=== PATIENT | female | born 1955 | race Caucasian/White ===

== ENCOUNTER 2016-08-14 10:49 | Day surgery (SDC) | payer OTHER ==
[~2016-08-14] VITALS: Ht 160 cm; Wt 95.0 kg
[~2016-08-14 10:49] MED LIST: 0.9% Sodium Chloride 1,000 ML IV PRN; ALBU2.5V4 NEB; AMIT10TA6 PO; ANAS1TAB7 PO; ASPI-973 PO; BENZ100C8 PO; BUPR150T12 PO; BUSP15TA3 PO; CALC-696 PO; CALC-777 PO; CETI10CA PO; CHOL100043 PO; CICL6.6S18 TP; CYCL10TA9 PO; DENO60DI SQ; EPIN0.3P2 IM; FLUT16SP NOSTRIL; FLUT1DIS5 IH; IPRA0.2S51 INHALATION; IPRA3AMP NEB; LEVO150T5 PO; LOVA40TA PO; METF-496 PO; MONT10TA20 PO; OMEP20CA11 PO; PRAM0.5T3 PO; PRE20 PO; SENN-133 PO; Sodium Chloride LOK Flush 10 mL Syringe IV PRN; TOPI50TA32 PO; TRAZ-118 PO; ZOV800 PO; fentaNYL-PF 50 mCg/mL 2 mL Inj IVPUSH PRN
[2016-08-14 13:00] VITALS: BP 110/70; PULSE 97; RESP 19; O2SAT 89
--- NOTE | 2016-08-14 13:48 | PCM.ENDCOL ---
Colonoscopy Date of Service: Aug 14, 2016 Physician Janes Hussein MD Indication for Procedure Worsening constipation and personal history of colon polyp Post Procedure Dx & Findings: Polyps hemorrhoids diverticuli Procedure Colonoscopy Prep adequate Withdrawal 17 minutes PROCEDURE IN DETAIL: After unremarkable rectal examination Olympus video colonoscope was inserted into the patient's anal canal was advanced to cecum. Landmarks were identified including ileocecal valve and appendiceal orifice. Was withdrawn systematically. In the ascending colon there was a 1 mm polyp which was resected using cold forceps. In the transverse colon there was a 5 mm polyp which was resected completely using cold snare. In the rectosigmoid junction there were two 2-3 mm polyp which was resected completely using cold snare. In the sigmoid colon and up to the descending colon, multiple small to large diverticuli noted. The mucosa of the cecum, ascending, transverse, descending, sigmoid, rectal mucosa lined with whitish, pink, smooth, glistening, normal-appearing mucosa, normal fine branching, underlying vascularity, normal haustra. The patient tolerated procedure and was transported to observation area. In the rectum retroflexion was done which showed hemorrhoids and a canals inspected carefully and the way out and hemorrhoids noted. Impression Polyps 4 status post complete removal Hemorrhoids Diverticuli Recommendation Repeat colonoscopy 3 years Diverticular diet Presedation Assessment Risks and Benefits Informed consent was obtained from the patient after all risks and benefits including but not limited to drug reaction, infection, pain, bleeding, perforation, as well as alternatives were discussed. Patient monitoring Continuous pulse oximetry, cardiac monitoring, blood pressure monitoring, IV access, and oxygen at 2L per nasal cannula. Periprocedural Fentanyl: Fentanyl 125mcg Incrementally Midazolam: Midazolam 5mg Incrementally Complications There were no periprocedural complications identified. Post Procedure Plan Post Procedure Recommendations 1. Restrict activities today. 2. Resume normal activities in the morning. 3. Resume medications. 4. Patient informed of normal post procedure side effects as bloating, drowsiness, blood streaking in the stool. 5. average risk CRCS. If colon polyps come back as: -Hyperplastic- can repeat colonoscopy in 10 years -Tubular adenoma- repeat colonoscopy in 5 years -Tubulovillous/villous adenoma- repeat colonoscopy in 3 years -If any dysplasia- return to clinic as soon as possible 6. Please don't hesitate to call me with any questions. Janes Hussein MD Aug 14, 2016 13:48
[2016-08-14 13:53] VITALS: BP 104/66; PULSE 85; RESP 14; O2SAT 96
[2016-08-14 14:02] VITALS: BP 89/69; PULSE 82; RESP 14; O2SAT 92; O2SAT 96
[2016-08-14 14:10] VITALS: BP 93/70; PULSE 86; RESP 16; O2SAT 92
--- NOTE | 2016-08-16 10:20 | PATH ---
SURGICAL PATHOLOGY Attending Physician:Janes Hussein M.D. CASE STATUS: Signed Out PATIENT NAME: JOSEPH SARAVIA PID: [id number] : 1955 DATE COLLECTED:08/14/2016 00:00 SPECIMEN: 1: Colon, Biopsy 2: Colon, Biopsy 3: Rectum, Biopsy CLINICAL HISTORY: A: ASCENDING POLYP B: TRANSVERSE POLYP C: RECTAL POLYP FINAL DIAGNOSIS: A. Ascending Colon Polyp: Tubular adenoma. B. Transverse Colon Polyp: Tubular adenoma. C. Rectal Polyp: Hyperplastic polyp. ICD10: D12.6 GROSS DESCRIPTION: The specimen is received in three formalin filled containers labeled with the patient's name. 1). The specimen is sublabeled "ascending polyp" and consists of a 0.3 x 0.3 x 0.3 CM portion of tissue which is entirely submitted in cassette 1A. 2). The specimen is sublabeled "transverse polyp" and consists of 2 portions of tissue which aggregate to 0.6 x 0.6 x 0.5 CM. The specimen is entirely submitted in cassette 2A. 3). The specimen is sublabeled "rectal polyp" and consists of a 0.3 x 0.2 x 0.2 CM portion of tissue which is entirely submitted in cassettes 3A. 08/15/2016 [facility] ICD-9 CODES: CPT CODES: 1: 89541 2: 85093 3: 33584 Electronically Signed Out [address] MD [facility] Pathology [facility], [place] [address] Technical component performed at [facility], [address] [place] [address] Ave[address], [place], [address]
[2016-09-22] MEDS ORDERED: ZIT250 PO (14:20)
== END 2016-08-14 23:59 | disposition home or self-care (01) ==
LOC: END 10:49
PROVIDERS: ATTEND Internal Medicine
DX: D12.2 Benign neoplasm of ascending colon (principal); D12.3 Benign neoplasm of transverse colon; K62.1 Rectal polyp; K59.00 Constipation, unspecified; K57.30 Diverticulosis of large intestine without perforation or abscess without bleeding; K64.8 Other hemorrhoids; F17.210 Nicotine dependence, cigarettes, uncomplicated; Z79.899 Other long term (current) drug therapy

== ENCOUNTER 2017-02-03 13:56 | Inpatient (IN) | payer OTHER, MEDICAID ==
[~2017-02-03] VITALS: Ht 157.5 cm; Wt 103.2 kg
[~2017-02-03 13:56] MED LIST changes: -0.9% Sodium Chloride 1,000 ML IV PRN; -CALC-777 PO; -IPRA0.2S51 INHALATION; -Sodium Chloride LOK Flush 10 mL Syringe IV PRN; -TOPI50TA32 PO; +ZIT250 PO; -fentaNYL-PF 50 mCg/mL 2 mL Inj IVPUSH PRN
[2017-02-03 14:01] VITALS: BP 151/76; PULSE 101; RESP 20; O2SAT 92
--- NOTE | 2017-02-03 16:28 | DRSVH ---
PROCEDURE: X-RAY CHEST ONE VIEW, PORTABLE ([id number]) INDICATIONS: cp TECHNIQUE: One view of the chest was acquired. COMPARISON: [facility], CR, XR CHEST 2VW, 07/02/2016, 17:55. FINDINGS: Surgical changes and devices: None. Lungs and pleura: No pleural effusions or pneumothorax. Bibasilar scarring/atelectasis, which appear s grossly unchanged. No new consolidation.. Mediastinum: Mediastinal contours appear normal. Heart size is normal. Bones and chest wall: No suspicious bony lesions. Overlying soft tissues appear unremarkable. IMPRESSION: Bibasilar atelectasis/scarring, unchanged. No new consolidation. Dictated by: Yakov Braun M.D. on 02/03/2017 at 16:26 Approved by: Yakov Braun M.D. on 02/03/2017 at 16:27
--- NOTE | 2017-02-03 16:46 | ED.REPORT ---
HPI-Chest Pain 40 and Over Date of Service Feb 03, 2017 ED Provider: Alba Dunn History of Present Illness: headaches off and on for a while. lungs are the main issue. Seen today at 1 pm at [facility]. having sob, cough is getting worse. has o2 at home does nebulizer daily last neb at noon today. doing them sometimes q 30 minutes apart. Has had grandson for the last 3 weeks, worse for the last 10 days. Nursing Notes Stated Complaint: LUNG, CHEST PAIN Chief Complaint: Chest Pain Allergies: Coded Allergies: Penicillins (Verified Allergy, Severe, HIVES, 05/24/15) codeine (Verified Allergy, Severe, Rash,Itching,, 05/24/15) soap (Verified Allergy, Intermediate, ASTHMA, 08/14/16) Uncoded Allergies: ORAL METRONIDAZOLE (Adverse Reaction, Unknown, "INTOLERANCE", 05/24/15) Scheduled Amitriptyline (Amitriptyline) 10 Mg Tablet 20 MG PO HS Anastrozole (Anastrozole) 1 Mg Tablet 1 MG PO DAILY Aspirin (Aspirin) 81 Mg Tablet 81 MG PO DAILY Azithromycin (Zithromax) 250 Mg Tablet 250 MG PO DIRECTED M, W, F up to [address] Harrison Bupropion ER (Bupropion ER) 150 Mg Tablet.er 1 TABLET PO BID Buspirone (Buspirone) 15 Mg Tablet 15 MG PO BID Cetirizine HCl (Zyrtec) 10 Mg Capsule 10 MG PO QAM Cholecalciferol (Vitamin D3) (Vitamin D) 1,000 Unit Tablet 1,000 UNIT PO DAILY Ciclopirox (Ciclodan) 6.6 Ml Solution 6.6 ML TP HS Denosumab (Prolia) 60 Mg/1 Ml Syringe 60 MG SQ EVERY 6 MONTHS Fluticasone Propionate (Fluticasone Propionate Nasal) 16 Gm [place].susp 2 SPRAYS NOSTRIL QAM Fluticasone/Salmeterol (Advair 500-50 Diskus) 1 Each Disk.w.dev 1 PUFF IH BID Ipratropium/Albuterol Sulfate (Iprat-Albut 0.5-3(2.5) mg/3 mL Inhalant Soln) 3 Ml Ampul.neb 3 ML NEB QIDWA Levothyroxine (Levothyroxine) 150 Mcg Tablet 150 MCG PO DAILY Lovastatin (Lovastatin) 40 Mg Tablet 40 MG PO HS Metformin ER (Metformin ER) 1,000 Mg Tablet 1,000 MG PO BID Montelukast (Singulair) 10 Mg Tablet 10 MG PO HS Omeprazole (Omeprazole) 20 Mg Capsule.dr 20 MG PO DAILY Pramipexole Dihydrochloride (Mirapex) 0.5 Mg Tablet 0.5 MG PO TID Sennosides (Senna) 8.6 Mg Tablet 17.2 MG PO BID Trazodone (Trazodone) 100 Mg Tablet 200 MG PO HS Scheduled PRN Acyclovir (Acyclovir) 800 Mg Tab 1 TABLET PO DIRECTED PRN PRN Herpes Albuterol Neb Soln (Albuterol Neb Soln) 2.5 Mg/3 Ml Vial.neb 2.5 MG NEB Q2H PRN PRN For Shortness of Breath Benzonatate (Benzonatate) 100 Mg Capsule 100 MG PO TID PRN PRN For Cough Cyclobenzaprine (Cyclobenzaprine) 10 Mg Tablet 10 MG PO TID PRN PRN Spasm Epinephrine (Epipen 2-Stef) 0.3 Mg/0.3 Ml Auto.injct 1 DOSE IM PRN For Anaphyllaxis Prednisone (PredniSONE) 20 Mg Tablet 20 MG PO TID PRN PRN For Cough Miscellaneous Medications Calcium Citrate/Vitamin D2 (Kirill-Citrate Plus Vitamin D Tab) 1 Each Tablet 1 EACH PO General Time Seen by MD: 16:44 Chief Complaint Shortness of breath, Other Hx Obtained From: Patient Sudden in Onset?: No Recent Healthcare: Recent doctor visit Past Medical History Past Medical History Notes: Seen 04/05/15 - dx'd by CT with acute diverticulitis, Rx Flagyl + Levo x 10d Past Medical History [place] Reports: Asthma, COPD, Diabetes mellitus Past Surgical History fallopian tube at 14 years old, kidneys tacked up, shoulder and both wrists Reports: Hysterectomy Family History noncontributory Smoking History Current Every Day Smoker Social History Alcohol Use: Denies alcohol use Drug Use: Other Occupation lives with daughter in law and her children and her boyfriend, no work or school 02/03/2017 Ambulatory Status Independent Review of Systems Basic Review of Systems Eyes: Vision NL, No discharge : No dysuria, No frequency Endocrine: No cold intolerance, No heat intolerance, No weight gain, No weight loss Physical Exam Initial Vital Signs Vital Signs (First) Date Time Temp Pulse Resp B/P Pulse Ox O2 Delivery O2 Flow Rate FiO2 02/03/17 14:01 37.2 101 20 151/76 92 Room Air 02/03/17 17:25 1.5 Initial VS: Reviewed, Vital signs normal Head / Eyes: Atraumatic, Normocephalic, PERRL ENT: Mucous membranes moist, Conjunctiva normal, No scleral icterus Neck: Supple, Non-tender, Full range of motion Back: No CVA tenderness Lymphatic: No lymphadenopathy Extremities: Vascular intact, Neuro intact, No swelling, No tenderness Skin: Warm, Dry, No cyanosis Neurologic: Alert, Oriented, Nonfocal Psychiatric: Mood/affect normal, Behavior normal, Normal thought content General/Constitutional: Awake, Alert Distress / Hydration: Positive: Distress moderate Respiratory / Chest: Atraumatic greatly decreased lung sounds. some improved after multiple nebs Cardiovascular: Heart rate NL, Regular rhythm, Heart sounds NL, No gallop, No murmurs, No rubs, Cap refill not delayed Abdomen: Atraumatic, Soft, Non-tender, McBurney's non-tender Interpretation & Diagnostics Lab Results Interpretation Result Diagram: 02/03/17 1655 02/03/17 1655 Test 02/03/17 16:55 02/03/17 17:30 02/03/17 17:50 White Blood Count 8.4th/mm3 (3.8-10.1) Red Blood Count 4.21mil/mm3 (3.90-5.20) Hemoglobin 12.0g/dL (12.0-15.6) Hematocrit 37.8% (35.0-46.0) Mean Corpuscular Volume 89.8fL (81-100) Mean Corpuscular Hemoglobin 28.5pg (27.0-35.0) Mean Corpuscular Hemoglobin Concent 31.7% (32.0-37.0) Red Cell Distribution Width 14.2% (12.3-15.4) Platelet Count 348bil/L (150-400) Neutrophils (%) (Auto) 71.2% (40-74) Lymphocytes (%) (Auto) 18.4% (14-46) Monocytes (%) (Auto) 6.5% (4-12) Eosinophils (%) (Auto) 2.5% (0-5) Basophils (%) (Auto) 0.6% (0-3) Sodium Level 136mEq/L (134-144) Potassium Level 4.4mEq/L (3.5-5.2) Chloride Level 99mEq/L (97-108) Carbon Dioxide Level 23mmol/L (18-29) Blood Urea Nitrogen 14mg/dL (8-27) Creatinine 0.62mg/dL (0.57-1.00) Estimat Glomerular Filtration Rate 141mL/min (>59) Glucose Level 169mg/dL (60-99) Calcium Level 9.2mg/dL (8.5-10.1) Total Bilirubin 0.2mg/dL (0.0-1.2) Aspartate Amino Transf (AST/SGOT) 20U/L (0-50) Alanine Aminotransferase (ALT/SGPT) 27U/L (0-32) Alkaline Phosphatase 99U/L (25-165) Troponin T < 0.010ug/L (0.0-0.011) Pro-B-Type Natriuretic Peptide 12.16pg/mL (0-287) Total Protein 7.4g/dL (6.4-8.4) Albumin 4.3g/dL (3.4-5.0) Hold Tobar Top Tube Received (Received) Lactic Acid Level 1.1mmol/L (0.4-2.0) Urine Color Yellow (YELLOW) Urine Appearance Clear (CLEAR,HAZY) Urine pH 5.0 (5.0-8.0) Urine Specific [place] 1.030 (1.003-1.035) Urine Protein Negativemg/dL (NEG,TRACE) Urine Glucose (UA) Negativemg/dL (NEGATIVE) Urine Ketones Negativemg/dL (NEGATIVE) Urine Occult Blood Negative (NEGATIVE) Urine Nitrite Negative (NEGATIVE) Urine Bilirubin Negative (NEGATIVE) Urine Urobilinogen Normalmg/dL (NORMAL) Urine Leukocyte Esterase Negative (NEGATIVE) Urine RBC 0-2/hpf (0-2) Urine WBC 0-5/hpf (0-5) Urine Epithelial Cells Moderate/hpf (NONE-MOD) Urine Crystals None seen (NONE SEEN) Urine Bacteria Few/hpf (NONE-FEW) Urine Hyaline Casts None/lpf (NONE) Urine Granular Casts None seen (NONE SEEN) Urine Waxy Casts None seen (NONE SEEN) Urine Red Blood Cell Casts None seen (NONE SEEN) Urine White Blood Cell Casts None seen (NONE SEEN) Urine Mucus None seen (None Seen) Urine Trichomonas None seen (NONE SEEN) Urine Yeast None (NONE SEEN) Urinalysis Comment None Urine Culture Reflexed Not indicated Re-Eval/Medical Decision Med Decision/Clinical Course 61 year old female with copd with excerbation. Patient reports ability to breath after multiple nebs and soulmedrol. Road test and she drops to the 80s. Admit. no sign of PE or pneumonia Discharge & Departure Primary Impression: COPD exacerbation Disposition: ADMITTED TO HOSPITAL Referrals: Markos Pascual MD (PCP) EDSupervising Provider for APC: Clayton Denney MD copies to: Markos Pascual MD, Sue ARNP Feb 03, 2017 16:46
[2017-02-03] MEDS ORDERED: Albuterol-Ipratropium 3 mL Inhalation Solution NEB ONE ×2 (17:10→20:10)
[2017-02-03] MEDS ORDERED: MethylprednisoLONE Sodium Succinate 62.5 mg/mL 2 mL Inj IVPUSH ONE (17:10)
[2017-02-03] MEDS ORDERED: Albuterol 2.5 mg/3 mL Inhalation Solution NEB ONE (17:15)
[2017-02-03 17:23] LABS: BASOPHILS % (AUTO) 0.6 % (0-3); EOSINOPHILS % (AUTO) 2.5 % (0-5); MONOCYTES % (AUTO) 6.5 % (4-12); Mean Corpuscular Hemoglobin 28.5 pg (27.0-35.0); Mean Corpuscular Volume 89.8 fL (81-100); NEUTROPHILS % (AUTO) 71.2 % (40-74); Platelet Count 348 bil/L (150-400)
[2017-02-03 17:25] VITALS: PULSE 91; RESP 16; O2SAT 96
[2017-02-03 17:48] LABS: TROPONIN T < 0.010 ug/L (0.0-0.011)
--- NOTE | 2017-02-03 19:19 | DRSVH ---
PROCEDURE: CT ANGIO CHEST PULMONARY EMBOLISM ([id number]) INDICATIONS: sob TECHNIQUE: After the administration of intravenous contrast, 2 mm thick sections acquired from the pulmonary api avani to the posterior costophrenic angles. 3-dimensional maximum intensity projection (MIP) coronal a nd sagittal reformats were then acquired through the thorax. For radiation dose reduction, the follo wing was used: automated exposure control, adjustment of mA and/or kV according to patient size. COMPARISON: None. FINDINGS: Image quality: Excellent. Pulmonary arteries: Pulmonary arteries are normal in size, and demonstrate no intraluminal filling d efects to suggest central pulmonary embolism. Lungs and pleura: Bibasilar scarring and atelectasis. No focal consolidation. No pleural effusions o r pneumothorax. Central and peripheral airways are patent. Mediastinum: Heart size is normal, with trace anterior pericardial effusion. No mediastinal or rodrigo r adenopathy. Thoracic aorta is normal in caliber and enhancement. Esophagus is normal in caliber, without hiatal hernia. Bones and chest wall: No suspicious bony lesions. Ribs and thoracic spine appear intact throughout. Thyroid gland unremarkable. No axillary or supraclavicular adenopathy. Abdomen: Visualized upper abdominal solid organs appear normal in the early arterial phase of enhanc ement. IMPRESSION: No pulmonary embolism. Bibasilar scarring/atelectasis. Dictated by: Yakov Braun M.D. on 02/03/2017 at 19:14 Approved by: Yakov Braun M.D. on 02/03/2017 at 19:18
[2017-02-03 19:34] LABS: APPEARANCE,URINE CLEAR (CLEAR,HAZY); COLOR,URINE YELLOW (YELLOW)
[2017-02-03 19:35] LABS: OCCULT BLOOD,URINE NEGATIVE (NEGATIVE); UROBILINOGEN,URINE NORMAL (NORMAL)
[2017-02-03 20:19] VITALS: PULSE 88; RESP 16; O2SAT 93
[2017-02-03] MEDS ORDERED: Alum-Mag Hydrox-Simeth 30 mL Suspension PO PRN (20:25)
[2017-02-03] MEDS ORDERED: Polyethylene Glycol (PEG) 17 Gm Powder PO PRN (20:25)
[2017-02-03] MEDS ORDERED: Ondansetron 2 mg/mL 2 mL Inj IVPUSH PRN (20:25)
[2017-02-03] MEDS ORDERED: Glucose 40% Oral Gel 15 Gm Tube PO PRN (20:30)
[2017-02-03] MEDS: Albuterol-Ipratropium 3 mL Inhalation Solution NEB SCH (20:30)
[2017-02-03] MEDS ORDERED: Dextrose 10% 250 ML IV PRN (20:35)
--- NOTE | 2017-02-03 20:35 | PCM.HPMED ---
Subjective Date of Service Feb 03, 2017 Primary Provider: Admitting Physician: Primary Care Physician: Markos Pascual MD Attending Physician: Admit Status: From the Emergency Department, Full Admit Chief Complaint: shortness of breathe History of Present Illness: Meagan Mercado is a 60 year old female with COPD and Chronic Respiratory failure on home oxygen, asthma, and Diabetes presenting to [facility] Emergency department with shortness of breath Patient has been having shortness of breathe for a couple of days but worsened today. She has been taking care of her grandson (9 year old visiting from [place] ) who had some runny nose and coughing. Associated symptoms includes head ache and increasing dyspnea and coughing. No improvement with neb treatment at home despite doing it several times a day. She has Asthma since childhood and has a long list of allergies including dogs, she has 3 dogs at her home but takes a allergy shot every week. She also uses CPAP at night She was evaluated at [facility] and then transferred to the Emergency department. Patient tachycardic on arrival (HR 101) Received Solu-Medral and Neb treatment but with little relief. Plan for admission. Review of Systems: Pertinent positives as noted in HPI. All other systems were reviewed and are negative Allergies Coded Allergies: Penicillins (Verified Allergy, Severe, HIVES, 05/24/15) codeine (Verified Allergy, Severe, Rash,Itching,, 05/24/15) soap (Verified Allergy, Intermediate, ASTHMA, 08/14/16) Uncoded Allergies: ORAL METRONIDAZOLE (Adverse Reaction, Unknown, "INTOLERANCE", 05/24/15) Home Medications From [facility], not yet confirmed Meagan Mercado [id number] 1955 12/05/2016 02:00 PM 07/15 acyclovir 800 mg tablet take 1 tablet by oral route 5 times every day for 10 days Advair Diskus 500 mcg-50 mcg/dose for Inhalation 1 inhalation barrie morning and again every evening. Rinse mouth after use. amitriptyline 10 mg tablet TAKE 2 TABS ORALLY AT BEDTIME anastrozole 1 mg tablet take 1 tablet (1MG) by oral route every day azithromycin 250 mg tablet take one tab every other day ie Sunday/ Sunday/ Sunday bupropion HCl SR 150 mg tablet,sustained-release take 1 tablet by oral route 2 times every day buspirone 15 mg tablet take 1 tablet by oral route 2 times every day Calcium 600 + D(3) 600 mg calcium-200 unit capsule Cetirizine Hcl 1 tablet by mouth daily ciclopirox 8 % topical solution apply by topical route every day to the affected area(s) preferably at bedtime or 8 hours before washing Cyclobenzaprine Hcl 1tab 3x daily Elbow Strap Please apply to both elbows at night Fluticasone 50 Mcg/Actuation Disk W 2 sprays each nostril as needed hydrocodone 5 mg-acetaminophen 325 mg tablet take 1 tablet by oral route every 6 hours as needed for pain ipratropium-albuterol 0.5 mg-3 mg(2.5 mg base)/3 mL nebulization soln inhale 3 milliliter by nebulization route 3 times every day ipratropium-albuterol 0.5 mg-3 mg(2.5 mg base)/3 mL nebulization soln inhale 1 milliliter by nebulization route 6 times every day levothyroxine 150 mcg tablet take 1 tablet (150MCG) by oral route every day lorazepam 0.5 mg tablet take 1 Tablet by oral route 3 times every day as needed lovastatin 40 mg tablet take 1 tablet (40MG) by oral route every day with the evening meal meloxicam 7.5 mg tablet take 1 tablet by ORAL route 2 times every day metformin 1,000 mg tablet take 1 tablet (1000MG) by oral route 2 times every day with morning and evening meals methocarbamol 750 mg tablet take 2 tablet by ORAL route every 12 hours omeprazole 20 mg Cap, Delayed Release take 1 capsule (20MG) by ORAL route every day before a meal PRAMIPEXOLE 0.5 MG TABLET TAKE 2 TABLETS ORALLY 1-3 HOURS BEFORE BEDTIME *BOTTLE * prednisone 20 mg tablet take 1 tablet by oral route 3 times every day Prolia 60 mg/mL subcutaneous syringe inject 1 milliliter by subcutaneous route every 6 months in the upper arm, upper thigh or abdomen Singulair 10 mg Tab take 1 tablet by mouth every evening Topamax 25 mg tablet take 2 Tablet by oral route every day evening trazodone 100 mg tablet take 1 tablet (100MG) by ORAL route every day after meals Vitamin D3 1,000 unit chewable tablet PMH 1. Diverticulosis and diverticulitis in the past 2. Chronic obstructive pulmonary disease. She uses home oxygen, continues to smoke. 3. Obstructive sleep apnea with use of home CPAP. 4. Osteoporosis. 5. Type 2 diabetes mellitus, oral agent controlled. 6. Chronic back pain. 7. Obesity and hyperlipidemia. 8. Respiratory allergies/hay fever. 9. Prior history of methamphetamine and alcohol abuse, abstinent since the early . 10. Hypothyroid, on replacement. 11. Worsening constipation, currently followed at [facility] GI clinic . Surgical History Hysterectomy. Family History One sister with breast cancer. Two other siblings with COPD. Two brothers with coronary artery disease. Mother with coronary artery disease. Social History Hx Alcohol Use: No (QUIT 01/22-HX OF ABUSE) Hx Substance Use: Yes (STOPPED 14 YEARS AGO-METH, COCAINE-USES MARIJUANA OCCAS) Hx Tobacco Use: Yes (was a 2 pack/day) Smoking Status: Current Every Day Smoker Living Arrangement: with Family Exam Vital Signs Vital Sign - Last Date Time Temp Pulse Resp B/P Pulse Ox O2 Delivery O2 Flow Rate FiO2 02/03/17 20:19 88 16 93 Nasal Cannula 2 02/03/17 14:01 37.2 151/76 Exam General: Alert, Oriented X3, Cooperative, mild acute Distress due to anxiety from dyspnea. Talking in full sentences Eyes: PERRLA, Scleral Anicteric Mouth: Mouth Normal, Mucous Membranes Moist/[place] Neck: Supple, no Thyromegaly, trachea central. Chest & Lungs: Clear to auscultation & percussion but with some expiratory wheezing noted on both lung benitez Cardiovascular: Normal S1, Normal S2, No Murmurs/Rubs/Gallops, Regular Rate/ Rhythm, No JVD, no peripheral edema) Pulses: Radial (present and equal), Dorsalis Pedi (present and equal) Abdomen: Soft, Non-tender, Non-distended, Normoactive bowel tones. Musculoskeletal: Unremarkable. Normal range of motion, no swollen or erythematous joints Extremities: No edema, no cyanosis, no clubbing. Skin: No rashes. Warm and dry, no erythematous areas Neurological: Grossly neurologically intact, Normal Speech, Sensation Intact Lymphatic: Lymph nodes Cervical and Axillary not palpable. Lab and Diagnostics Labs Laboratory Tests Test 02/03/17 16:55 02/03/17 17:30 02/03/17 17:50 White Blood Count 8.4th/mm3 (3.8-10.1) Red Blood Count 4.21mil/mm3 (3.90-5.20) Hemoglobin 12.0g/dL (12.0-15.6) Hematocrit 37.8% (35.0-46.0) Mean Corpuscular Volume 89.8fL (81-100) Mean Corpuscular Hemoglobin 28.5pg (27.0-35.0) Mean Corpuscular Hemoglobin Concent 31.7% (32.0-37.0) Red Cell Distribution Width 14.2% (12.3-15.4) Platelet Count 348bil/L (150-400) Neutrophils (%) (Auto) 71.2% (40-74) Lymphocytes (%) (Auto) 18.4% (14-46) Monocytes (%) (Auto) 6.5% (4-12) Eosinophils (%) (Auto) 2.5% (0-5) Basophils (%) (Auto) 0.6% (0-3) Sodium Level 136mEq/L (134-144) Potassium Level 4.4mEq/L (3.5-5.2) Chloride Level 99mEq/L (97-108) Carbon Dioxide Level 23mmol/L (18-29) Blood Urea Nitrogen 14mg/dL (8-27) Creatinine 0.62mg/dL (0.57-1.00) Estimat Glomerular Filtration Rate 141mL/min (>59) Glucose Level 169mg/dL (60-99) Calcium Level 9.2mg/dL (8.5-10.1) Total Bilirubin 0.2mg/dL (0.0-1.2) Aspartate Amino Transf (AST/SGOT) 20U/L (0-50) Alanine Aminotransferase (ALT/SGPT) 27U/L (0-32) Alkaline Phosphatase 99U/L (25-165) Troponin T < 0.010ug/L (0.0-0.011) Pro-B-Type Natriuretic Peptide 12.16pg/mL (0-287) Total Protein 7.4g/dL (6.4-8.4) Albumin 4.3g/dL (3.4-5.0) Hold Tobar Top Tube Received (Received) Lactic Acid Level 1.1mmol/L (0.4-2.0) Urine Color Yellow (YELLOW) Urine Appearance Clear (CLEAR,HAZY) Urine pH 5.0 (5.0-8.0) Urine Specific [place] 1.030 (1.003-1.035) Urine Protein Negativemg/dL (NEG,TRACE) Urine Glucose (UA) Negativemg/dL (NEGATIVE) Urine Ketones Negativemg/dL (NEGATIVE) Urine Occult Blood Negative (NEGATIVE) Urine Nitrite Negative (NEGATIVE) Urine Bilirubin Negative (NEGATIVE) Urine Urobilinogen Normalmg/dL (NORMAL) Urine Leukocyte Esterase Negative (NEGATIVE) Urine RBC 0-2/hpf (0-2) Urine WBC 0-5/hpf (0-5) Urine Epithelial Cells Moderate/hpf (NONE-MOD) Urine Crystals None seen (NONE SEEN) Urine Bacteria Few/hpf (NONE-FEW) Urine Hyaline Casts None/lpf (NONE) Urine Granular Casts None seen (NONE SEEN) Urine Waxy Casts None seen (NONE SEEN) Urine Red Blood Cell Casts None seen (NONE SEEN) Urine White Blood Cell Casts None seen (NONE SEEN) Urine Mucus None seen (None Seen) Urine Trichomonas None seen (NONE SEEN) Urine Yeast None (NONE SEEN) Urinalysis Comment None Urine Culture Reflexed Not indicated Result Diagram: 02/03/17 1655 02/03/17 1655 X-Rays, CTs and MRIs X-RAY CHEST ONE VIEW, PORTABLE 02/03 IMPRESSION: Bibasilar atelectasis/scarring, unchanged. No new consolidation. Dictated by: Yakov Braun M.D. on 02/03/2017 at 16:26 Approved by: Yakov Braun M.D. on 02/03/2017 at 16:27 CT ANGIO CHEST PULMONARY EMBOLISM 02/03 IMPRESSION: No pulmonary embolism. Bibasilar scarring/atelectasis. Dictated by: Yakov Braun M.D. on 02/03/2017 at 19:14 Approved by: Yakov Braun M.D. on 02/03/2017 at 19:18 Assessment & Plan Meagan Mercado is a 60 year old female with COPD and Chronic Respiratory failure on home oxygen, asthma, and Diabetes presenting to [facility] Emergency department with shortness of breath 1. Acute COPD exacerbation. Present on admission. Under therapy I suspect a Viral infection triggered this episode as well as continued smoking with persistent pulmonology insults. No infectious process or Pulmonary embolism on CT scan of chest - continue oxygen supplementation - systemic steroids with Prednisone 60 mg daily (outpatient dose she takes daily ) - continue DuoNeb scheduled - checking Procalcitonin, if elevated will start antibiotics - consider Pulmonology consult if no improvement, she has severe endstage COPD 2. Acute on Chronic Hypoxic Respiratory Failure Due to COPD exacerbation. Patient takes 2 L Oxygen at baseline at home - maintain Oxygenation around 88-92% 3. Nicotine Dependence Cessation discussed and encouraged with patient - Nicotine patch upon patient's demand 4. Obstructive sleep apnea (on chronic CPAP) with associated restless leg syndrome. - Continue home CPAP - Continue Mirapex for restless legs 5. Type 2 diabetes mellitus, oral agent controlled at home. High sugars on admission likely due to steroids and stress. - holding Metformin while inpatient - Continue medium lispro correctional scale insulin 6. Chronic depression and anxiety. - Continue amitriptyline, Wellbutrin, BuSpar, and trazodone for sleep. 7. Hypothyroid - on levothyroxine 150 mcg by mouth daily - Acetaminophen as needed for mild pain/fever/headache - Bowel regimen as needed - Antiemetic as needed Patient admitted under inpatient status with expected length of stay > 2 midnights for severity of present symptoms, complexities of treatment plan and risk for adverse event . Resuscitation Status: CPR: Attempt Resuscitation Jin Montesinos MD Feb 03, 2017 20:35
[2017-02-03 21:03] VITALS: BP 116/45; PULSE 94; RESP 14; O2SAT 90
[2017-02-03 21:32] VITALS: BP 102/59; PULSE 97; RESP 22; O2SAT 90
[2017-02-03] MEDS ORDERED: Acyclovir 800 mg Tablet PO PRN (23:10)
[2017-02-03] MEDS: 0.9% Sodium Chloride 1,000 ML IV SCH (23:16)
[2017-02-03] MEDS: Insulin LISPRO 300 Unit/3 mL Inj SUBQ SCH (23:53)
--- NOTE | 2017-02-03 23:54 | NUR ---
Admission Pt arrived alert and oriented x 3 to [facility] [place] 0 [place] gurney and she was able to ambulate onto the scale then onto the bed. Pt c/o 4/10 rib pain r/t coughing per patient, but said it was tolerable. Denies chest pain/pressure and shortness of breath. Tele in place. cont pulse ox placed for CRIS 5. Oriented to bathroom, television, telephone, bed controls, and VSS. Admission questions and Med Rec completed. Care continues.
[2017-02-03 23:58] VITALS: BP 131/81; PULSE 92; RESP 24; O2SAT 91
[2017-02-04] VITALS (16 sets, daily range): BP systolic 106–125; BP diastolic 62–75; PULSE 82–108; RESP 18–22; O2SAT 89–97
[2017-02-04] MEDS: Heparin 5,000 Unit/mL Inj SUBQ SCH ×4 (00:30→23:52)
[2017-02-04] MEDS: Albuterol-Ipratropium 3 mL Inhalation Solution NEB SCH ×7 (02:15→23:43)
[2017-02-04] MEDS: predniSONE 20 mg Tablet PO SCH (07:59)
[2017-02-04] MEDS: 0.9% Sodium Chloride 1,000 ML IV SCH ×2 (07:59→17:13)
[2017-02-04] MEDS: BusPIRone 15 mg Dividose Tablet PO SCH ×2 (07:59→20:45)
[2017-02-04] MEDS: Pantoprazole 20 mg ER24 Tablet PO SCH (08:00)
[2017-02-04] MEDS: Fluticasone-Salmeterol 500-50 Inhaler INHALATION SCH ×2 (08:04→20:42)
[2017-02-04] MEDS: Fluticasone 0.05% 15 Spray/2 Gm 16 Gm Nasal Spray NOSTRIL SCH (08:04)
[2017-02-04] MEDS: buPROPion SR 150 mg ER12 Tablet PO SCH ×2 (08:07→20:44)
[2017-02-04] MEDS: Insulin LISPRO 300 Unit/3 mL Inj SUBQ SCH ×4 (08:10→21:01)
[2017-02-04] MEDS ORDERED: predniSONE 20 mg Tablet PO SCH (08:30)
--- NOTE | 2017-02-04 16:30 | NUR ---
Social Work-initial assessment/ readiness for discharge: Data:See initial assessment. Pt is a 61 y/o female who was admitted on 02/03/17 for COPD per H&P. Pt's insurance is [facility] and PCP is Markos Pascual MD. EMR Reviewed. SW met with pt at bedside, SW role explained. Pt resides at home with so where she remains independent with basic ADLS. Pt uses a cane at baseline and does drive. Pt has no HH or SNF history. Pt has home O2 through [facility]. 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 SW discussed DPOA/ advanced directive,information provided. SW provided pt with discharge planning checklist booklet and encouraged her to call with any questions, phone number provided. So to provide transport home. No anticipated discharge needs. SW will continue to follow if needs arise. Assessment:pt who is independent at baseline. Plan:Pt to discharge home when medically stable via POV. No anticipated discharge needs. SW will continue to follow if needs arise. MIGUEL ÁNGEL Sanchez Addendum: 02/04/17 at 1631 by EDMOND MADRID Amended: Links added.
--- NOTE | 2017-02-04 19:23 | NUR ---
Wanting to leave A&O pt. Able to make needs known. Tolerating medications well. Teaching provided re low sugar diet regan r/t steroids. Pt willing to be compliant. Wanted to leave today, was reassured by MD that closer monitoring was needed d/t desaturation with ambulation. Pt on 2L of O2 at home at baseline.
--- NOTE | 2017-02-04 23:29 | PCM.PNMED ---
Subjective Date of Service Feb 04, 2017 Subjective The patient is feeling a little bit better. She states that she just sent her grandson back to [place] after he was visiting for a while and she did not take care of herself. She has no other new complaints. Her shortness of breath is improving. Exam Vital Signs Vital Sign - Last Date Time Temp Pulse Resp B/P Pulse Ox O2 Delivery O2 Flow Rate FiO2 02/04/17 20:47 Supplement Oxygen 02/04/17 20:25 36.6 102 20 125/75 92 2.00 Intake and Output 02/03/17 02/03/17 02/04/17 Cumulative From/Thru 15:00 23:00 07:00 02/03/17 14:01 - 02/04/17 05:27 Intake Total 337 ml 337 ml Output Total 900 ml 900 ml Balance -563 ml -563 ml Intake Oral 337 ml 337 ml Output Urine Total 900 ml 900 ml # Voids 1 1 # Bowel Movements 1 1 Exam General: The patient is sitting up side of the bed in no apparent distress however she is talking her oxygen levels dropped on the oximeter. HEENT: Head is atraumatic and normocephalic. Eyes: Pupils are equally round and reactive to light and accommodation. Extraocular muscles are intact. Sclera are white, anicteric. Subconjunctival mucosa is pink. Ears and nose are unremarkable. Oropharynx: There is no mucosal lesions, there is no thrush, there is no pharyngitis. Neck: Is supple, there are no nodes, or masses or tenderness. Chest: Is significant for decreased breath sounds bilaterally. Heart: Rate, rhythm is regular. There is no new murmur, rub or gallop. Abdomen: Good bowel sounds are present. Abdomen is obese, soft, nontender, no organomegaly or masses were appreciated. Extremities: Are symmetrical and well perfused. There is no edema, there is no cellulitis, no rash. Neurologic: There are no focal neurological deficits. Cranial nerves II through XII are intact. There are no sensory or motor deficits. Psychiatric: Patients mood is calm and shows no sign of agitation. Genital: Deferred Rectal: Deferred Lab and Diagnostics Result Diagram: 02/03/17 1655 02/03/171654 X-Rays, CTs and MRIs X-RAY CHEST ONE VIEW, PORTABLE 02/03 IMPRESSION: Bibasilar atelectasis/scarring, unchanged. No new consolidation. Dictated by: Yakov Braun M.D. on 02/03/2017 at 16:26 Approved by: Yakov Braun M.D. on 02/03/2017 at 16:27 CT ANGIO CHEST PULMONARY EMBOLISM 02/03 IMPRESSION: No pulmonary embolism. Bibasilar scarring/atelectasis. Dictated by: Yakov Braun M.D. on 02/03/2017 at 19:14 Approved by: Yakov Braun M.D. on 02/03/2017 at 19:18 Assessment & Plan Meagan Mercado is a 60 year old female with COPD and Chronic Respiratory failure on home oxygen, asthma, and Diabetes presenting to [facility] Emergency department with shortness of breath. The patient was admitted to the hospitalist service for further evaluation and treatment. 1. Acute COPD exacerbation. Present on admission. Under therapy I suspect a Viral infection triggered this episode as well as continued smoking with persistent pulmonology insults. No infectious process or Pulmonary embolism on CT scan of chest - We will continue oxygen supplementation - We will continue systemic steroids with Prednisone 60 mg daily (outpatient dose she takes daily) - We will continue DuoNeb scheduled - Procalcitonin levels are negative. The patient has no evidence of infection Therefore, we will not start antibiotics at this time. - We will consider Pulmonology consult if no improvement, she has severe endstage COPD 2. Acute on Chronic Hypoxic Respiratory Failure, present on admission. Resolving Due to COPD exacerbation. Patient takes 2 L Oxygen at baseline at home - maintain Oxygenation around 88-92% 3. Nicotine Dependence Cessation discussed and encouraged with patient - Nicotine patch upon patient's demand 4. Obstructive sleep apnea (on chronic CPAP) with associated restless leg syndrome. - Continue home CPAP - Continue Mirapex for restless legs 5. Type 2 diabetes mellitus, oral agent controlled at home. High sugars on admission likely due to steroids and stress. - We will continue holding Metformin while inpatient - Continue medium lispro correctional scale insulin 6. Chronic depression and anxiety. - Continue amitriptyline, Wellbutrin, BuSpar, and trazodone for sleep. 7. Hypothyroid - We will continue on levothyroxine 150 mcg by mouth daily - Acetaminophen as needed for mild pain/fever/headache - Bowel regimen as needed - Antiemetic as needed Disposition: Patient will be here for another 24 hours for the evaluation and treatment of the above medical conditions. . Pain Evaluation: Adequate Pain Control VTE Mechanical Devices: Venous Foot Pump Resuscitation Status: CPR: Attempt Resuscitation Hu Malin MD Feb 04, 2017 23:29
[2017-02-05] VITALS (9 sets, daily range): BP systolic 105–146; BP diastolic 63–82; PULSE 80–97; RESP 18–22; O2SAT 91–94
[2017-02-05] MEDS: 0.9% Sodium Chloride 1,000 ML IV SCH ×2 (02:32→12:21)
[2017-02-05] MEDS: Albuterol-Ipratropium 3 mL Inhalation Solution NEB SCH ×4 (03:44→17:14)
--- NOTE | 2017-02-05 04:56 | NUR ---
Resp. status Pt. received scheduled Neb.tx 2x this shift, states" I feel so much better, can't wait to go home" denies SOB, wears CPAP at HS at baseline,on [employer], sats stable at low 90s, slept most of the night, denies any discomfort, VSS afebrile, no s/s of respiratory distress, cont. on tele SR 91 per hospital monitor, call light in reach at all times, hourly checks, will continue to monitor
[2017-02-05 07:08] LABS: Magnesium 1.8 mg/dL (1.6-2.6)
[2017-02-05 07:21] LABS: BASOPHILS % (AUTO) 0.2 % (0-3); EOSINOPHILS % (AUTO) 0.3 % (0-5); MONOCYTES % (AUTO) 8.3 % (4-12); Mean Corpuscular Volume 90.7 fL (81-100); NEUTROPHILS % (AUTO) 73.6 % (40-74); Platelet Count 300 bil/L (150-400)
[2017-02-05] MEDS: Fluticasone-Salmeterol 500-50 Inhaler INHALATION SCH (08:11)
[2017-02-05] MEDS: Insulin LISPRO 300 Unit/3 mL Inj SUBQ SCH ×3 (08:11→17:16)
[2017-02-05] MEDS: Fluticasone 0.05% 15 Spray/2 Gm 16 Gm Nasal Spray NOSTRIL SCH (08:12)
[2017-02-05] MEDS: predniSONE 20 mg Tablet PO SCH (08:12)
[2017-02-05] MEDS: BusPIRone 15 mg Dividose Tablet PO SCH (08:12)
[2017-02-05] MEDS: Pantoprazole 20 mg ER24 Tablet PO SCH (08:14)
[2017-02-05] MEDS: buPROPion SR 150 mg ER12 Tablet PO SCH (08:14)
[2017-02-05] MEDS: Heparin 5,000 Unit/mL Inj SUBQ SCH ×2 (08:15→16:30)
[2017-02-05] MEDS ORDERED: Magnesium Sulf 2 Gm/50mL Water 2 GM in IV Premix 1 EACH IV ONE (09:00)
--- NOTE | 2017-02-05 10:58 | NUR ---
Social Work-readiness for discharge: Data:EMR Reviewed. P tis on day 2 of hospitalization for hypoxia per H&P. Pt is likely medically stable later today or tomorrow. Pt resides at home with her SO. Pt has been up independent in his room. Pt has home o2 through [facility]. No anticipated discharge needs. SW will continue to follow if needs arise. Assessment:Pt who is independent at baseline. Plan:Pt to discharge home when medically stable via POV. No anticipated discharge needs. SW will continue to follow if needs arise. MIGUEL ÁNGEL Sanchez
--- NOTE | 2017-02-05 17:09 | PCM.DIMED ---
Discharge Instructions Date of Service Feb 05, 2017 Dates of Hospitalization Feb 03, 2017 at 20:59 Discharge Diagnosis Discharge Diagnosis Exacerbation of COPD Diet Discharge Diet: Heart Healthy Activity Discharge Activity: No restrictions (Patient may increase to her usual activity gradually as tolerated.) Call your provider Call your provider for: Fever or Chills, Shortness of breath, Bleeding, Chest pain, Vomitting, Excessive diarrhea, Weakness (unilateral) Patient Instructions Follow-up Provider: Markos Pascual MD Follow-up with PCP in: 1 week Provider: Danya Mccabe MD Follow-up in: 2 weeks Hu Malin MD Feb 05, 2017 17:09
[2017-02-05] MEDS ORDERED: INSLIS SUBQ (17:26)
[2017-02-05] MEDS ORDERED: PRE10 PO (17:26)
--- NOTE | 2017-02-05 18:29 | NUR ---
DISCHARGE Patient discharged home at 1814, off floor in wheelchair accompanied by RN. Vitals stable, denies pain and in no apparent distress. Two IVs discontinued intact, all belongings returned. All instructions for diet, activity, medications and new prescriptions reviewed with patient who reports understanding.
--- NOTE | 2017-02-06 02:57 | PCM.DC.MED ---
Discharge Summary Date of Service Feb 05, 2017 Dates of Hospitalization Date of Hospital Admission Feb 03, 2017 at 20:59 Date of Discharge: Feb 05, 2017 Providers: Admitting Physician: Jin Montesinos MD Primary Care Physician: Markos Pascual MD Attending Physician: Hu Malin MD Diagnosis at Time of Discharge Diagnosis at Time of Discharge Exacerbation of COPD Procedures XRay, CTs & MRIs X-RAY CHEST ONE VIEW, PORTABLE 02/03 IMPRESSION: Bibasilar atelectasis/scarring, unchanged. No new consolidation. Dictated by: Yakov Braun M.D. on 02/03/2017 at 16:26 Approved by: Yakov Braun M.D. on 02/03/2017 at 16:27 CT ANGIO CHEST PULMONARY EMBOLISM 02/03 IMPRESSION: No pulmonary embolism. Bibasilar scarring/atelectasis. Dictated by: Yakov Braun M.D. on 02/03/2017 at 19:14 Approved by: Yakov Braun M.D. on 02/03/2017 at 19:18 Brief History Meagan Mercado is a 60 year old female with COPD and Chronic Respiratory failure on home oxygen, asthma, and Diabetes presenting to [facility] Emergency department with shortness of breath Patient has been having shortness of breathe for a couple of days but worsened today. She has been taking care of her grandson (9 year old visiting from [place] ) who had some runny nose and coughing. Associated symptoms includes head ache and increasing dyspnea and coughing. No improvement with neb treatment at home despite doing it several times a day. She has Asthma since childhood and has a long list of allergies including dogs, she has 3 dogs at her home but takes a allergy shot every week. She also uses CPAP at night She was evaluated at [facility] and then transferred to the Emergency department. Patient tachycardic on arrival (HR 101) Received Solu-Medral and Neb treatment but with little relief. Plan for admission. Hospital Course Meagan Mercado is a 60 year old female with COPD and Chronic Respiratory failure on home oxygen, asthma, and Diabetes presenting to [facility] Emergency department with shortness of breath. The patient was admitted to the hospitalist service for further evaluation and treatment. 1. Acute COPD exacerbation. Present on admission. Under therapy I suspect a Viral infection triggered this episode as well as continued smoking with persistent pulmonology insults. No infectious process or Pulmonary embolism on CT scan of chest - We will continue oxygen supplementation - We will continue systemic steroids with Prednisone 60 mg daily (outpatient dose she takes daily) - We will continue DuoNeb scheduled - Procalcitonin levels are negative. The patient has no evidence of infection Therefore, we will not start antibiotics at this time. - We will consider Pulmonology consult if no improvement, she has severe endstage COPD 2. Acute on Chronic Hypoxic Respiratory Failure, present on admission. Resolving Due to COPD exacerbation. Patient takes 2 L Oxygen at baseline at home - maintain Oxygenation around 88-92% 3. Nicotine Dependence Cessation discussed and encouraged with patient - Nicotine patch upon patient's demand 4. Obstructive sleep apnea (on chronic CPAP) with associated restless leg syndrome. - Continue home CPAP - Continue Mirapex for restless legs 5. Type 2 diabetes mellitus, oral agent controlled at home. High sugars on admission likely due to steroids and stress. - We will continue holding Metformin while inpatient - Continue medium lispro correctional scale insulin 6. Chronic depression and anxiety. - Continue amitriptyline, Wellbutrin, BuSpar, and trazodone for sleep. 7. Hypothyroid - We will continue on levothyroxine 150 mcg by mouth daily - Acetaminophen as needed for mild pain/fever/headache - Bowel regimen as needed - Antiemetic as needed Disposition: Patient was feeling much more comfortable and will be discharged home today . Exam Vital Signs (Last) Date Time Temp Pulse Resp B/P Pulse Ox O2 Delivery O2 Flow Rate FiO2 02/05/17 17:14 97 20 91 Room Air 02/05/17 16:13 36.3 132/82 2.00 Exam General: The patient is sitting up in bed and in no apparent distress. She is much more comfortable. HEENT: Head is atraumatic and normocephalic. Eyes: Pupils are equally round and reactive to light and accommodation. Extraocular muscles are intact. Sclera are white, anicteric. Subconjunctival mucosa is pink. Ears and nose are unremarkable. Oropharynx: There is no mucosal lesions, there is no thrush, there is no pharyngitis. Neck: Is supple, there are no nodes, or masses or tenderness. Chest: Is significant for decreased breath sounds bilaterally. Heart: Rate, rhythm is regular. There is no new murmur, rub or gallop. Abdomen: Good bowel sounds are present. Abdomen is obese, soft, nontender, no organomegaly or masses were appreciated. Extremities: Are symmetrical and well perfused. There is no edema, there is no cellulitis, no rash. Neurologic: There are no focal neurological deficits. Cranial nerves II through XII are intact. There are no sensory or motor deficits. Psychiatric: Patients mood is calm and shows no sign of agitation. Genital: Deferred Rectal: Deferred Test 02/03/17 16:55 02/03/17 17:30 02/03/17 17:50 02/05/17 06:20 Hemoglobin A1c 8.4% (4.8-5.6) Troponin T < 0.010ug/L (0.0-0.011) Pro-B-Type Natriuretic Peptide 12.16pg/mL (0-287) Procalcitonin 0.04ng/mL (0.00-0.08) Hold Tobar Top Tube Received (Received) Lactic Acid Level 1.1mmol/L (0.4-2.0) Urine Color Yellow (YELLOW) Urine Appearance Clear (CLEAR,HAZY) Urine pH 5.0 (5.0-8.0) Urine Specific [place] 1.030 (1.003-1.035) Urine Protein Negativemg/dL (NEG,TRACE) Urine Glucose (UA) Negativemg/dL (NEGATIVE) Urine Ketones Negativemg/dL (NEGATIVE) Urine Occult Blood Negative (NEGATIVE) Urine Nitrite Negative (NEGATIVE) Urine Bilirubin Negative (NEGATIVE) Urine Urobilinogen Normalmg/dL (NORMAL) Urine Leukocyte Esterase Negative (NEGATIVE) Urine RBC 0-2/hpf (0-2) Urine WBC 0-5/hpf (0-5) Urine Epithelial Cells Moderate/hpf (NONE-MOD) Urine Crystals None seen (NONE SEEN) Urine Bacteria Few/hpf (NONE-FEW) Urine Hyaline Casts None/lpf (NONE) Urine Granular Casts None seen (NONE SEEN) Urine Waxy Casts None seen (NONE SEEN) Urine Red Blood Cell Casts None seen (NONE SEEN) Urine White Blood Cell Casts None seen (NONE SEEN) Urine Mucus None seen (None Seen) Urine Trichomonas None seen (NONE SEEN) Urine Yeast None (NONE SEEN) Urinalysis Comment None Urine Culture Reflexed Not indicated White Blood Count 10.3th/mm3 (3.8-10.1) Red Blood Count 3.43mil/mm3 (3.90-5.20) Hemoglobin 9.6g/dL (12.0-15.6) Hematocrit 31.1% (35.0-46.0) Mean Corpuscular Volume 90.7fL (81-100) Mean Corpuscular Hemoglobin 28.0pg (27.0-35.0) Mean Corpuscular Hemoglobin Concent 30.9% (32.0-37.0) Red Cell Distribution Width 14.4% (12.3-15.4) Platelet Count 300bil/L (150-400) Neutrophils (%) (Auto) 73.6% (40-74) Lymphocytes (%) (Auto) 16.7% (14-46) Monocytes (%) (Auto) 8.3% (4-12) Eosinophils (%) (Auto) 0.3% (0-5) Basophils (%) (Auto) 0.2% (0-3) Sodium Level 140mEq/L (134-144) Potassium Level 4.4mEq/L (3.5-5.2) Chloride Level 104mEq/L (97-108) Carbon Dioxide Level 25mmol/L (18-29) Blood Urea Nitrogen 13mg/dL (8-27) Creatinine 0.61mg/dL (0.57-1.00) Estimat Glomerular Filtration Rate 143mL/min (>59) Glucose Level 183mg/dL (60-99) Calcium Level 8.4mg/dL (8.5-10.1) Magnesium Level 1.8mg/dL (1.6-2.6) Total Bilirubin 0.2mg/dL (0.0-1.2) Aspartate Amino Transf (AST/SGOT) 19U/L (0-50) Alanine Aminotransferase (ALT/SGPT) 25U/L (0-32) Alkaline Phosphatase 70U/L (25-165) Total Protein 5.7g/dL (6.4-8.4) Albumin 3.7g/dL (3.4-5.0) Discharge Medications Discharge Medications Amitriptyline (Amitriptyline) 10 Mg Tablet 20 MG PO HS (Reported) Anastrozole (Anastrozole) 1 Mg Tablet 1 MG PO DAILY (Reported) Aspirin (Aspirin) 81 Mg Tablet 81 MG PO DAILY (Reported) Azithromycin (Zithromax) 250 Mg Tablet 250 MG PO DIRECTED (Reported) M, W, F up to [address] Harrison Bupropion ER (Bupropion ER) 150 Mg Tablet.er 1 TABLET PO BID (Reported) Buspirone (Buspirone) 15 Mg Tablet 15 MG PO BID (Reported) Cetirizine HCl (Zyrtec) 10 Mg Capsule 10 MG PO QAM (Reported) Cholecalciferol (Vitamin D3) (Vitamin D) 1,000 Unit Tablet 1,000 UNIT PO DAILY ( Reported) Ciclopirox (Ciclodan) 6.6 Ml Solution 6.6 ML TP HS (Reported) Denosumab (Prolia) 60 Mg/1 Ml Syringe 60 MG SQ EVERY 6 MONTHS (Reported) Fluticasone Propionate (Fluticasone Propionate Nasal) 16 Gm [place].susp 2 SPRAYS NOSTRIL QAM (Reported) Fluticasone/Salmeterol (Advair 500-50 Diskus) 1 Each Disk.w.dev 1 PUFF IH BID ( Reported) Insulin Human Lispro (HumaLOG U100 Insulin Vial) 100 Unit/Ml Unit 0 UNIT SUBQ WMHS Check blood sugars before meals and at bedtime. Use correction factor only before meals. Blood Sugar Lispro Correction: <151, 0 units; 151-175, 1 unit; 176-200, 2 units; 201-225, 3 units; 226-250, 4 units; 251-275, 5 units; 276-300 , 6 units; 301-325, 7 units; 326-350, 8 units; 351-375, 9 units; 376-400, 10 units; >400, 12 units. Prescribed by: DUNIA MALIN MD Ipratropium/Albuterol Sulfate (Iprat-Albut 0.5-3(2.5) mg/3 mL Inhalant Soln) 3 Ml Ampul.neb 3 ML NEB QIDWA Prescribed by: KHALIF PRITCHETT DO Levothyroxine (Levothyroxine) 150 Mcg Tablet 150 MCG PO DAILY (Reported) Lovastatin (Lovastatin) 40 Mg Tablet 40 MG PO HS (Reported) Metformin ER (Metformin ER) 1,000 Mg Tablet 1,000 MG PO BID (Reported) Montelukast (Singulair) 10 Mg Tablet 10 MG PO HS (Reported) Omeprazole (Omeprazole) 20 Mg Capsule.dr 20 MG PO DAILY (Reported) Pramipexole Dihydrochloride (Mirapex) 0.5 Mg Tablet 0.5 MG PO TID (Reported) Prednisone (PredniSONE) 10 Mg Tablet 10 MG PO DAILY Please take 6 tabs a day for 5 days then, Please take 4 tabs a day for 5 days then, Please take 3 tabs a day for 5 days then, Please take 2 tabs a day for 5 days then, Please take 1 tab a day for 5 days then stop. Prescribed by: DUNIA MALIN MD Sennosides (Senna) 8.6 Mg Tablet 17.2 MG PO BID Prescribed by: VISH GIVENS DO Trazodone (Trazodone) 100 Mg Tablet 200 MG PO HS (Reported) As needed Acyclovir (Acyclovir) 800 Mg Tab 1 TABLET PO DIRECTED PRN PRN Herpes ( Reported) Albuterol Neb Soln (Albuterol Neb Soln) 2.5 Mg/3 Ml Vial.neb 2.5 MG NEB Q2H PRN PRN For Shortness of Breath Prescribed by: KHALIF PRITCHETT DO Benzonatate (Benzonatate) 100 Mg Capsule 100 MG PO TID PRN PRN For Cough Prescribed by: KHALIF PRITCHETT DO Cyclobenzaprine (Cyclobenzaprine) 10 Mg Tablet 10 MG PO TID PRN PRN Spasm ( Reported) Epinephrine (Epipen 2-Stef) 0.3 Mg/0.3 Ml Auto.injct 1 DOSE IM PRN For Anaphyllaxis (Reported) Miscellaneous Medications Calcium Citrate/Vitamin D2 (Kirill-Citrate Plus Vitamin D Tab) 1 Each Tablet 1 EACH PO (Reported) Followup Plan Disposition: The patient was to be discharged home. Discharge Diet: Heart Healthy Discharge Activity: No restrictions (Patient may increase to her usual activity gradually as tolerated.) Follow-up Provider: Markos Pascual MD Follow-up with PCP in: 1 week Provider: Danya Mccabe MD Follow-up in: 2 weeks Time spent Time spent on discharging this patient was greater than 35 minutes, over half of which was involved in counseling and coordination of care. Hu Malin MD Feb 06, 2017 02:57
== END 2017-02-05 18:15 | disposition home or self-care (01) | DRG 140 ==
LOC: SED 13:56 → OBSVTOIN 20:59 → MPC 20:59
PROVIDERS: ADMIT Hospitalist; ATTEND Hospitalist
DX: J44.1 Chronic obstructive pulmonary disease with (acute) exacerbation (principal); J96.21 Acute and chronic respiratory failure with hypoxia; F17.210 Nicotine dependence, cigarettes, uncomplicated; G47.33 Obstructive sleep apnea (adult) (pediatric); G25.81 Restless legs syndrome; E11.9 Type 2 diabetes mellitus without complications; F41.8 Other specified anxiety disorders; E03.9 Hypothyroidism, unspecified; Z79.84 Long term (current) use of oral hypoglycemic drugs; J45.909 Unspecified asthma, uncomplicated